=== PATIENT | male | born 1950 | race Caucasian/White ===

== ENCOUNTER 2017-11-28 12:27 | Outpatient (CLI) | payer MEDICARE, BC ==
[2017-11-28 13:13] LABS: Prothrombin Time 13.1 SEC (12.0-14.7)
[2017-11-28 13:20] LABS: Anion Gap 11 mmol/L (10-20); BUN (Urea Nitrogen) 26 mg/dL (8.4-25.7); Calc. Creatinine Clearance 0 mL/min (70-130); Calcium 9.3 mg/dL (7.8-10.44); Carbon Dioxide 25 mmol/L (23-31); Chloride 103 mmol/L (98-107); Estimated GFR-MDRD 70; Glucose 97 mg/dL (80-115); Potassium 4.2 mmol/L (3.5-5.1); Sodium 135 mmol/L (136-145)
[2017-11-28 13:40] LABS: Band 1 % (5-11); Hemoglobin 15.6 g/dL (14.0-18.0); Lymphocytes 9 % (21-51); MDiff Complete? YES; Mean Corpuscular HGB CONC 34.4 g/dL (32.0-36.0); Mean Corpuscular Hemoglobin 31.2 pg (27.0-31.0); Mean Corpuscular Volume 90.5 fl (80.0-94.0); Mean Platelet Volume 8.2 fL (7.4-10.4); Monocytes 7 % (0-10); Neutrophil 83 % (42-75); PLT Morphology Comment Appears Adequate; Platelet Count 179 thou/uL (130-400); RBC Distribution Width 13.8 % (11.5-14.5); Red Blood Cell (RBC) Count 5.01 mill/uL (4.70-6.10); White Blood Cell (WBC) Count 7.1 thou/uL (4.8-10.8)
== END 2017-11-28 12:28 | disposition home or self-care (01) ==
LOC: LABBT 12:27
PROVIDERS: ATTEND Surgery
DX: Z01.818 Encounter for other preprocedural examination (principal); M48.061 Spinal stenosis, lumbar region without neurogenic claudication
CPT/HCPCS: 80048; 85025; 85610; 85730; 93005; 93010

== ENCOUNTER 2017-12-04 08:09 | Day surgery (SDC) | payer MEDICARE, BC ==
[2017-11-28 12:26] VITALS: BMI 26.3
[2017-12-04] MEDS ORDERED: CEFAZOLIN/Water 2 GM/20 ML SYRINGE ONE (08:37)
[2017-12-04] MEDS ORDERED: Sodium Chloride 0.9% 10 ML ONE (10:23)
[2017-12-04] MEDS ORDERED: Thrombin 5000 UNITS/5 ML VIAL ONE (10:24)
[2017-12-04] MEDS ORDERED: Bacitracin Zinc Ointment 30 gm TUBE ONE (10:24)
[2017-12-04] MEDS ORDERED: Fentanyl 100 MCG/2 ML VIAL ONE (10:44)
[2017-12-04] MEDS ORDERED: Ondansetron HCl/PF 4 MG/2 ML Vial IVP PRN (11:51)
[2017-12-04] MEDS ORDERED: Promethazine HCl 25 MG/ML VIAL SLOW IVP PRN (11:51)
[2017-12-04] MEDS ORDERED: Morphine Sulfate 2 MG/ML SYRINGE SLOW IVP PRN (11:51)
[2017-12-04] MEDS ORDERED: Promethazine HCl 25 MG/ML VIAL IM PRN ×2 (11:51→13:16)
[2017-12-04] MEDS ORDERED: HYDROmorphone 2 MG/ML VIAL SLOW IVP PRN (11:51)
[2017-12-04] MEDS ORDERED: Meperidine HCl/PF 25 MG/ML VIAL SLOW IVP PRN (11:51)
[2017-12-04] MEDS ORDERED: HYDROmorphone 0.5 MG/0.5 ML SYRINGE ONE (12:36)
[2017-12-04] MEDS ORDERED: Milk Of Magnesia 30 ML UDCUP PO PRN (13:16)
[2017-12-04] MEDS ORDERED: Acetaminophen/Codeine 30-300mg Tablet PO PRN (13:16)
[2017-12-04] MEDS ORDERED: tiZANidine HCl 4 MG TAB PO PRN (13:16)
[2017-12-04] MEDS ORDERED: Mag-Al 1200 mg/1200 mg/30 ML UDCUP PO PRN (13:16)
[2017-12-04] MEDS ORDERED: Fleet Enema 133 ML BOT PR PRN (13:16)
[2017-12-04] MEDS ORDERED: traMADol HCl 50 MG TAB PO PRN (13:16)
[2017-12-04] MEDS ORDERED: Morphine 4 MG/ML VIAL SLOW IVP PRN (13:16)
[2017-12-04] MEDS ORDERED: HYDROcodone/Acetaminophen 7.5/325 mg Tablet PO PRN (13:16)
[2017-12-04] MEDS ORDERED: Bisacodyl 10 MG SUPP PR PRN (13:16)
[2017-12-04] MEDS ORDERED: Furosemide 20 MG TAB PO SCH (13:30)
[2017-12-04] MEDS ORDERED: traMADol HCl 50 MG TAB ONE (13:45)
[2017-12-04] MEDS ORDERED: traMADol HCl 50 MG TAB PO SCH (14:00)
[2017-12-04] MEDS ORDERED: Acetaminophen 1,000 MG in Premix Bag 1 BAG IVPB SCH (14:00)
--- NOTE | 2017-12-04 14:01 | OP ---
OR: 11. WOUND TYPE: Type 1 wound. SURGEON: Hugo Henriquez M.D. MOLDER BENCH: John Davila PA-C. PREPROCEDURE DIAGNOSIS: Multilevel lumbar stenosis with history of right L4-L5 surgery. POSTPROCEDURE DIAGNOSIS: Multilevel lumbar stenosis with history of right L4-L5 surgery. PROCEDURES PERFORMED: 1. L3-L4 and L5-S1 laminectomies, partial facetectomies and foraminotomies over the L3, L4, L5, S1 n erve roots. 2. Right L4-L5 revision hemilaminotomy, foraminotomy for decompression of the right L4 nerve root. 3. Left L4-L5 hemilaminotomy for decompression of left L4 and left L5 nerve roots with foraminotomy (modifier 50 should be added to this surgery as the L4-L5 work was bilateral). DESCRIPTION OF PROCEDURE: After informed consent was obtained from the patient, the patient brought to OR 11. Proper patient pause and identification was carried out. He was placed under excellent ge neral endotracheal anesthesia and positioned prone on the operating room table. All appropriate poin ts were padded. We identified the L3 through S1 dorsal spines and this region was sterilely cleansed , prepared, and draped following the placement of a linear clif. After proper patient pause and iden tification, the wound was then opened with a combination of sharp, monopolar and blunt dissection, an d we proceeded over the L3, L4, L5, and S1 dorsal spines and lamina. Scar tissue was encountered as expected in the right L4-L5 region. A localization film confirmed our area of interest. We then per formed an L3-L4 and L5-S1 laminectomies, partial facetectomies and foraminotomies. We then also perf ormed a revision right L4-L5 and left L4-L5 hemilaminotomies, foraminotomies for decompression of the L4 and L5 nerve roots bilaterally. There was no spinal fluid leak. Hemostasis was maximized throug hout. The wound was then closed in anatomic layers following the sprinkling of vancomycin powder. T he patient then emerged from anesthesia following closure of the wound.
[2017-12-04] MEDS: CEFAZOLIN/Water 2 GM/20 ML SYRINGE SLOW IVP SCH ×2 (15:20→20:28)
[2017-12-04] MEDS ORDERED: Glycopyrrolate 0.2 MG/ML 5 ML SYRINGE ONE (16:40)
[2017-12-04] MEDS ORDERED: PHENYLEPHRINE-NS 100 MCG/ML 10 ML SYRINGE ONE (16:40)
[2017-12-04] MEDS ORDERED: Lidocaine 1% PF 5 ML VIAL ONE (16:40)
[2017-12-04] MEDS ORDERED: PROPOFOL 200 MG/20 ML VIAL ONE (16:40)
[2017-12-04] MEDS: Sodium Chloride 0.9% 1,000 ML IV SCH (18:32)
[2017-12-04] MEDS: metFORMIN 500 MG TAB PO SCH (19:02)
[2017-12-04] MEDS: Acetaminophen 325 MG TAB PO PRN (19:02)
[2017-12-04] MEDS ORDERED: Atorvastatin Calcium 20 MG TAB PO SCH (21:00)
[2017-12-05] MEDS: Sodium Chloride 0.9% 1,000 ML IV SCH (00:21)
[2017-12-05] MEDS: Acetaminophen 325 MG TAB PO PRN (07:50)
[2017-12-05] MEDS: metFORMIN 500 MG TAB PO SCH (07:50)
[2017-12-05] MEDS ORDERED: glyBURIDE 2.5 MG TAB PO SCH (08:00)
[2017-12-05 08:11] VITALS: BP 137/75; TEMP 97.6
[2017-12-05] MEDS ORDERED: Multivitamin W/ Minerals 1 TAB PO SCH (09:00)
[2017-12-05] MEDS ORDERED: Alogliptin 25 MG TAB PO SCH (09:00)
--- NOTE | 2017-12-05 19:36 | PRG ---
DATE OF SERVICE: 12/05/2017 Mr. Marshall is postoperative day 1 from lumbar decompression. He is doing well with improvement in his low back and leg pain with good strength. His wound is healing well and he is ambulating and vo iding on his own. We will plan for dismissal. We went over both intra and postoperative issues. He may be dismissed.
== END 2017-12-05 10:03 | disposition home or self-care (01) ==
LOC: SDC 08:09 → SJJU 13:16 → SDC 12-05 10:03
PROVIDERS: ATTEND Surgery
PROC: 01NB0ZZ Release Lumbar Nerve, Open Approach (ICD-10-PCS; principal; 2017-12-04)
DX: M48.061 Spinal stenosis, lumbar region without neurogenic claudication (principal); Z98.890 Other specified postprocedural states; Z79.899 Other long term (current) drug therapy; Z79.84 Long term (current) use of oral hypoglycemic drugs; Z98.1 Arthrodesis status
CPT/HCPCS: 36416; 76001; A4216; J0131; J1170; J2001; J2704; J3010; J3370; J3490

== ENCOUNTER 2019-10-07 08:28 | Day surgery (SDC) | payer MEDICARE, BC ==
[2019-10-06 14:43] VITALS: BMI 27.7
[2019-10-07 09:45] LABS: Hemoglobin 15.2 g/dL (14.0-18.0); Mean Corpuscular Hemoglobin 32.5 pg (27.0-31.0); Mean Corpuscular Volume 95.8 fL (78.0-98.0); Mean Platelet Volume 8.4 fL (7.4-10.4); Platelet Count 153 thou/uL (130-400); RBC Distribution Width 12.3 % (11.5-14.5); Red Blood Cell (RBC) Count 4.68 mill/uL (4.70-6.10); White Blood Cell (WBC) Count 5.8 thou/uL (4.8-10.8)
[2019-10-07 10:04] LABS: Band 5 % (5-11); Eosinophils 3 % (0-10); Lymphocytes 21 % (21-51); MDiff Complete? YES; Monocytes 11 % (0-10); Neutrophil 60 % (42-75); RBC Morphology Normal
[2019-10-07] MEDS ORDERED: Lidocaine 1% w/Epinephrine 1:100K 20 ML VIAL ONE (11:04)
[2019-10-07] MEDS ORDERED: Lidocaine 2% Jelly 5 ML TUBE ONE (11:11)
[2019-10-07] MEDS ORDERED: Propofol 500 MG/50 ML VIAL ONE (11:11)
[2019-10-07] MEDS ORDERED: Fentanyl 100 MCG/2 ML VIAL ONE (11:11)
--- NOTE | 2019-10-07 12:28 | OP ---
DATE OF PROCEDURE: 10/07/2019 PREOPERATIVE DIAGNOSIS: Right ring finger trigger finger. POSTOPERATIVE DIAGNOSIS: Right ring finger trigger finger. PROCEDURE PERFORMED: Right trigger finger release. B2B APPOINTMENT SETTER: None. ANESTHESIOLOGIST: Deejay Truong MD ANESTHESIA: The patient received a TIVA and 6 mL of lidocaine plain. ESTIMATED BLOOD LOSS: Less than 5 mL. TOURNIQUET TIME: 6 minutes at 250 mmHg. ANTIBIOTICS: Ancef 2 g. COMPLICATIONS: None. HISTORY OF PRESENT ILLNESS: Mr. Marshall is a pleasant 69-year-old male, previous injection, continued to have pain with triggering of his right ring finger. I discussed with the patient risks and benefits of a right ring finger release to include, pain, scar, bleeding, infection, damage to vital structures, decreased range of motion, continued pain despite surgical intervention, loss of life or limb. The patient understood the risks and benefits of the procedure and elected to proceed. DESCRIPTION OF PROCEDURE: Time-out was performed designating the patient's right upper extremity as the operative site based on site, consents, and marking. After time-out, the patient's right upper extremity was prepped and draped in usual sterile fashion. Tourniquet was brought up and left for a total of 6 minutes. An incision was made over the fourth ray down through the skin, came down on the A1 mikhail, dissected it completely across and made sure, it was completely released the A1 mikhail. I washed, closed with 4-0 nylon and injected a total of 6 mL, pre and post. Closed the skin and placed soft tissue dressing. The patient will be discharged home. Follow up with me in about 10 to 12 days for suture removal. No heavy lifting. Job ID: [id number]
== END 2019-10-07 13:00 | disposition home or self-care (01) ==
LOC: SDC 08:28
PROVIDERS: ATTEND Orthopaedic Surgery
PROC: 0LN70ZZ Release Right Hand Tendon, Open Approach (ICD-10-PCS; principal; 2019-10-07)
DX: M65.341 Trigger finger, right ring finger (principal); E78.00 Pure hypercholesterolemia, unspecified; I10 Essential (primary) hypertension; E11.9 Type 2 diabetes mellitus without complications; Z79.84 Long term (current) use of oral hypoglycemic drugs; Z79.899 Other long term (current) drug therapy; Z96.651 Presence of right artificial knee joint; Z98.1 Arthrodesis status; Z98.890 Other specified postprocedural states
CPT/HCPCS: 85025; J0690; J2704; J3010